=== PATIENT | female | born 1965 | race Caucasian/White ===

== ENCOUNTER 2018-11-25 11:23 | Outpatient (CLI) | payer OTHER ==
[2018-11-25 11:58] LABS: eGFR (Non-African) > 60
== END 2018-11-25 11:25 ==
LOC: LAB 11:23
PROVIDERS: ATTEND Family Medicine
DX: Z00.00 Encounter for general adult medical examination without abnormal findings (principal)
CPT/HCPCS: 36415; 80053; 80061; 84443

== ENCOUNTER 2019-09-25 14:38 | Outpatient (CLI) | payer BC | END 2019-09-25 14:43 | LOC: LABRHC 14:38 | PROVIDERS: ATTEND Nurse Practitioner Family | DX: L02.412 Cutaneous abscess of left axilla (principal) | CPT/HCPCS: 87070 ==